=== PATIENT | male | born 1965 | race Caucasian/White ===

== ENCOUNTER 2016-11-18 14:14 | Emergency (ER) | payer OTHER ==
[~2016-11-18] VITALS: Ht 190.5 cm; Wt 83.9 kg
[2016-11-18 14:49] VITALS: BP 137/77
[2016-11-18] MEDS ORDERED: LAMO150T PO (14:51)
[2016-11-18] MEDS ORDERED: LEVE1000 PO (14:51)
--- NOTE | 2016-11-18 15:29 | NUR ---
PATIENT PRESENTS TO ED WITH PAIN TO HIS MOUTH, LIP AREA . PT STATES HE BELIEVES HE HAS HERPES VIRUS . DENIES N/V/D; SKIN IS PINK/WARM/DRY; AAOX4 WITH EVEN AND STEADY GAIT; LUNGS CLEAR BL; HR EVEN AND REGULAR; PT DENIES ANY FEVER, CP, SOB, OR COUGH AT THIS TIME; PATIENT STATES PAIN OF 7/10 AT THIS TIME; VSS; PATIENT POSITIONED FOR COMFORT; HOB ELEVATED;
--- NOTE | 2016-11-18 16:06 | NUR ---
DR NICK AT BEDSIDE
--- NOTE | 2016-11-18 16:29 | NUR ---
Patient discharged with v/s stable. Written and verbal after care instructions given and explained. Patient alert, oriented and verbalized understanding of instructions. Ambulatory with steady gait. All questions addressed prior to discharge. ID band removed. Patient advised to follow up with PMD. Rx of ACYCLOVIR AND MOTRIN given. Patient educated on indication of medication including possible reaction and side effects. Opportunity to ask questions provided and answered.
[2016-11-18 16:30] VITALS: BP 137/77
== END 2016-11-18 16:29 | disposition home or self-care (01) ==
LOC: MED 14:14
DX: B00.2 Herpesviral gingivostomatitis and pharyngotonsillitis (principal); Z88.0 Allergy status to penicillin; Z98.890 Other specified postprocedural states
CPT/HCPCS: 99283